=== PATIENT | female | born 1935 | race Caucasian/White ===

== ENCOUNTER 2017-05-02 06:52 | Day surgery (SDC) | payer OTHER ==
[2017-05-02] MEDS ORDERED: D5 LR 1000 ML 1,000 ML IV ONE (07:34)
[2017-05-02] MEDS ORDERED: DIPRIVAN VIAL 20 ML ONE (08:59)
[2017-05-02 11:41] VITALS: BP 130/69
== END 2017-05-02 09:50 | disposition home or self-care (01) ==
LOC: SURG1 06:52
PROVIDERS: ATTEND Internal Medicine Gastroenterology
PROC: 0DJ08ZZ Inspection of Upper Intestinal Tract, Via Natural or Artificial Opening Endoscopic (ICD-10-PCS; principal; 2017-05-02 09:45)
PROC: 0DB68ZX Excision of Stomach, Via Natural or Artificial Opening Endoscopic, Diagnostic (ICD-10-PCS; principal; 2017-05-02 09:45)
DX: K25.9 Gastric ulcer, unspecified as acute or chronic, without hemorrhage or perforation (principal); K21.9 Gastro-esophageal reflux disease without esophagitis; R10.13 Epigastric pain; K29.60 Other gastritis without bleeding; K20.8 Other esophagitis
CPT/HCPCS: 99100; A4217; J3490; J7120

== ENCOUNTER → 2017-05-13 | Outpatient (CLI) | payer OTHER ==
[2017-05-02 11:41] VITALS: BP 130/69
--- NOTE | 2017-05-13 14:50 | MG ---
HISTORY: SCREENING Comparison: May 03, 2016 FINDINGS: Bilateral CC and MLO projections of the right and left breast were obtained. Scattered fibroglandul ar tissue is seen to be present. No significant architectural distortion, mass or clustered microca lcifications can be observed to suggest malignancy. No skin thickening or nipple retraction is appr eciated. No pathological lymphadenopathy can be identified. Benign-appearing calcifications scatte red throughout the right and left breasts are observed. IMPRESSION: NO RADIOGRAPHIC EVIDENCE OF MALIGNANCY. ACR CATEGORY 2 - benign findings. FOLLOW-UP EXAM 1 YEAR. Diagnostic CAD was utilized and reviewed. * 0 (ZERO) - ASSESSMENT INCOMPLETE; ADDITIONAL IMAGING IS NEEDED. * 1/ (ONE) - NEGATIVE. * 2/II (TWO) - BENIGN FINDINGS. * 3/III (THREE) - PROBABLY BENIGN FINDING; SHORT INTERVAL FOLLOW-UP SUGGESTED. * 4/IV (FOUR) - SUSPICIOUS ABNORMALITY; BIOPSY SHOULD BE CONSIDERED. * 5/V - HIGHLY SUSPICIOUS OF MALIGNANCY; BIOPSY SHOULD BE PERFORMED. A NEGATIVE X-RAY REPORT SHOULD NOT DELAY BIOPSY IF A DOMINANT OR CLINICALLY SUSPICIOUS MASS IS PRESENT; 4 TO 8 PERCENT OF CANCERS ARE NOT IDENTIFIED BY X-RAY. A NEG ATIVE REPORT MAY REINFORCE THE CLINICAL IMPRESSION. ADENOSIS AND DENSE BREASTS MAY OBSCURE AN UNDER LYING NEOPLASM. Reported By:
== END | disposition home or self-care (01) ==
LOC: RAD 09:35
PROVIDERS: ATTEND Nurse Practitioner Family
DX: Z12.31 Encounter for screening mammogram for malignant neoplasm of breast (principal)
CPT/HCPCS: 77067

== ENCOUNTER → 2017-08-22 | Outpatient (CLI) | payer OTHER ==
[2017-08-22 08:18] LABS: BASOPHILS % (AUTO) 0.7 % (0.2-1.0); EOSINOPHILS # (AUTO) 0.1 x10^3/uL (0.0-0.2); EOSINOPHILS % (AUTO) 1.6 % (0.9-2.9); HEMOGLOBIN 14.2 g/dL (12.0-16.0); MEAN CORPUSCULAR HEMOGLOBIN 31.4 pg (27.0-34.0); MEAN CORPUSCULAR HGB CONC 33.7 g/dL (33.0-35.0); MEAN CORPUSCULAR VOLUME 93.2 fL (80.0-100.0); MEAN PLATELET VOLUME 8.9 fL (7.4-11.0); MONOCYTES # (AUTO) 0.4 x10^3/uL (0.3-0.8); MONOCYTES % (AUTO) 8.6 % (0.0-13.0); NEUTROPHILS # (AUTO) 3.1 x10^3/uL (2.2-4.8); NEUTROPHILS % (AUTO) 67.1 % (42.0-75.0); PLATELET COUNT 156 X10^3/uL (150.0-450.0); RED BLOOD COUNT 4.51 X10^6/uL (3.5-5.4); RED CELL DISTRIBUTION WIDTH 13.3 % (11.6-16.5); WHITE BLOOD COUNT 4.6 X10^3/uL (3.6-10.0)
[2017-08-22 08:35] LABS: ALANINE AMINOTRANSFERASE 31 Units/L (12-78); ALBUMIN 3.7 g/dL (3.4-5.0); ALKALINE PHOSPHATASE 91 Units/L (46-116); ASPARTATE AMINO TRANSFERASE 24 Units/L (15-37); BLOOD UREA NITROGEN 14 mg/dL (7-18); CALCIUM 9.1 mg/dL (8.5-10.1); CARBON DIOXIDE 29.9 mmol/L (21-32); CHLORIDE 108 mmol/L (98-107); CHOL/HDL RATIO 3.8 (0.0-5.0); CHOLESTEROL 203 mg/dL (0-200); FREE T4 (FREE THYROXINE) 0.96 ng/dL (0.76-1.46); HDL CHOLESTEROL 54 mg/dL (40-60); SODIUM 143 mmol/L (136-145); TRIGLYCERIDES 211 mg/dL (0-150); TSH (3RD GENERATION) 2.943 uIU/mL (0.358-3.74); eGFR BLACK RACES > 60 (>60); eGFR NON BLACK RACES > 60 (>60)
== END ==
LOC: LAB 07:52
PROVIDERS: ATTEND Nurse Practitioner Family
DX: Z79.899 Other long term (current) drug therapy (principal)
CPT/HCPCS: 36415; 80053; 80061; 84439; 84443; 85025

== ENCOUNTER 2017-10-18 23:24 | Inpatient (IN) | payer OTHER ==
--- NOTE | 2017-10-19 00:04 | DR.GENAD ---
HPI - PCP Primary Care Physician: EMILY KENYON - Complaint/Symptoms Chief Complaint Doctors Comments: patient presents with complaint of vomiting tonight, body ache and headache. She denies fever or diarrhea. 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 Past Surgical History: Yes Surgical History: Hysterectomy, Tonsillectomy - Family History History of Family Medical Conditions: No Family Medical History: Diabetes Mellitus, Coronary Artery Disease, Hypertension - Social History Does patient currently use any type of tobacco product: No Have you used tobacco products in the last 12 months: No Type of Tobacco Use: None Does any household member use tobacco: No Alcohol Use: None Do you use any recreational Drugs:: No Lives With: Spouse Lives Where: Home - infectious screening In the last 2 months have you had wt loss of >10#?: NO Have you had fever, night sweats or hemotysis?: No Have you traveled outside the country in the last 6 months?: No Isolation: Standard ROS - Review of Systems Eyes: No Symptoms Reported ENTM: No Symptoms Reported Respiratoy: No Symptoms Reported Cardiovascular: No Symptoms Reported Gastrointestinal/Abdominal: No Symptoms Reported Genitourinary: No Symptoms Reported Neurological: No Symptoms Reported Musculoskeletal: No Symptoms Reported Integumentary: See HPI, Change in Color, Dryness Hematologic/Lymphatic: No Symptoms Reported Endocrine: No Symptoms Reported Psychiatric: No Symptoms Reported All Other Systems: Reviewed and Negative PE - Vital Signs Vitals: Pulse Rate 22 Respiratory Rate 74 Blood Pressure [Right Arm] 145/71 Blood Pressure 181/82 O2 Sat by Pulse Oximetry 99 - General Limitations: No Limitations General Appearance: Alert, In No Apparent Distress - Head Head Exam: Normal Inspection, Atraumatic - Eyes Eye exam: Normal Appearance, PERRL, EOMI - ENT ENT Exam: Mucous Membranes Dry External Ear Exam: Normal External Inspection TM/Canal Exam: Bilateral Normal Nose Exam: Normal Nose Exam, Sinus Tenderness Mouth Exam: Other (dry) Throat Exam: Normal Inspection - Neck Neck Exam: Normal Inspection, Full ROM - Chest Chest Inspection: Normal Inspection - Respiratory Respiratory Exam: Normal Lung Sounds Bilat Respiratory Exam: Bilateral Clear to Auscultation - Cardiovascular Cardiovascular Exam: Regular Rate, Normal Rhythm - Abdominal Exam Abdominal Exam: Normal Inspection Abdominal Tenderness: negative: RUQ, RLQ, LUQ, LLQ, Epigastrium, Suprapubic, Diffuse, Mild, Moderate, Severe, Other - Extremities Extremities Exam: Normal Inspection, Full ROM. negative: Normal Capillary Refill (prolong) - Back Back Exam: Normal Inspection, Full ROM - Neurologic Neurological Exam: Alert, Oriented X3, CN II-XII Intact - Psychiatric Psychiatric Exam: Normal Affect - Skin Skin Exam: Warm, Dry, Intact, Other (decreased turgor) Course - Consultation Called: 01:25 (Dr Dewitt agreed to admit for further treatment) ROR - Labs Reviewed Result Diagrams: 10/18/17 23:25 10/18/17 23:25 Laboratory: WBC 7.7 X10^3/uL (3.6-10.0) 10/18/17 23:25 RBC 4.32 X10^6/uL (3.5-5.4) 10/18/17 23:25 Hgb 13.7 g/dL (12.0-16.0) 10/18/17 23:25 Hct 40.2 % (36.0-47.0) 10/18/17 23:25 MCV 93.1 fL (80.0-100.0) 10/18/17 23:25 MCH 31.7 pg (27.0-34.0) 10/18/17 23:25 MCHC 34.0 g/dL (33.0-35.0) 10/18/17 23:25 RDW 13.2 % (11.6-16.5) 10/18/17 23:25 Plt Count 144 X10^3/uL (150.0-450.0) L 10/18/17 23:25 MPV 8.6 fL (7.4-11.0) 10/18/17 23:25 Neut % 58.8 % (42.0-75.0) 10/18/17 23:25 Lymph % 31.8 % (21.0-51.0) 10/18/17 23:25 [place] % 7.8 % (0.0-13.0) 10/18/17 23:25 Eos % 1.0 % (0.9-2.9) 10/18/17 23:25 Baso % 0.6 % (0.2-1.0) 10/18/17 23:25 Neut # 4.6 x10^3/uL (2.2-4.8) 10/18/17 23:25 Lymph # 2.5 X10^3/uL (1.3-2.9) 10/18/17 23:25 [place] # 0.6 x10^3/uL (0.3-0.8) 10/18/17 23:25 Eos # 0.1 x10^3/uL (0.0-0.2) 10/18/17 23:25 Baso # 0.0 X10^3/uL (0.0-0.1) 10/18/17 23:25 Absolute Nucleated RBC 0.1 /100WBC 10/18/17 23:25 Sodium 142 mmol/L (136-145) 10/18/17 23:25 Corrected Sodium 143 mmol/L (136-145) 10/18/17 23:25 Potassium 3.0 mmol/L (3.5-5.1) L* 10/18/17 23:25 Chloride 105 mmol/L (98-107) 10/18/17 23:25 Carbon Dioxide 22.6 mmol/L (21-32) 10/18/17 23:25 BUN 12 mg/dL (7-18) 10/18/17 23:25 Creatinine 0.91 mg/dL (0.55-1.02) 10/18/17 23:25 Est GFR (MDRD) Af Amer > 60 (>60) 10/18/17 23:25 Est GFR (MDRD) Non-Af > 60 (>60) 10/18/17 23:25 Glucose 140 mg/dL (65-99) H 10/18/17 23:25 Calcium 9.4 mg/dL (8.5-10.1) 10/18/17 23:25 Corrected Calcium TNP 10/18/17 23:25 Total Bilirubin 0.40 mg/dL (0.2-1.0) 10/18/17 23:25 AST 20 Units/L (15-37) 10/18/17 23:25 ALT 21 Units/L (12-78) 10/18/17 23:25 Alkaline Phosphatase 96 Units/L (46-116) 10/18/17 23:25 Total Protein 7.3 g/dL (6.4-8.2) 10/18/17 23:25 Albumin 3.8 g/dL (3.4-5.0) 10/18/17 23:25 Globulin 3.5 g/dL (2.5-4.5) 10/18/17 23:25 Albumin/Globulin Ratio 1.1 Ratio (1.1-2.1) 10/18/17 23:25 - XRAY XRAY Interpreted by: Radiologist (Chest:Patchy left basilar opacities, either reflecting atelectasis or developing infiltrate.) - Diagnosis Discharge Problem: Dehydration, Hypokalemia, Left basilar pneumonia - Discharge Plan Condition: Stable - Follow ups/Referrals Follow ups/Referrals: JUAN CARLOS RILEY [Primary Care Provider] - 3 days - Instructions
[2017-10-19 00:20] LABS: BASOPHILS % (AUTO) 0.6 % (0.2-1.0); EOSINOPHILS # (AUTO) 0.1 x10^3/uL (0.0-0.2); HEMATOCRIT 40.2 % (36.0-47.0); HEMOGLOBIN 13.7 g/dL (12.0-16.0); LYMPHOCYTES # (AUTO) 2.5 X10^3/uL (1.3-2.9); LYMPHOCYTES % (AUTO) 31.8 % (21.0-51.0); MEAN CORPUSCULAR HEMOGLOBIN 31.7 pg (27.0-34.0); MEAN CORPUSCULAR VOLUME 93.1 fL (80.0-100.0); MEAN PLATELET VOLUME 8.6 fL (7.4-11.0); MONOCYTES # (AUTO) 0.6 x10^3/uL (0.3-0.8); MONOCYTES % (AUTO) 7.8 % (0.0-13.0); NEUTROPHILS # (AUTO) 4.6 x10^3/uL (2.2-4.8); NEUTROPHILS % (AUTO) 58.8 % (42.0-75.0); PLATELET COUNT 144 X10^3/uL (150.0-450.0); RED BLOOD COUNT 4.32 X10^6/uL (3.5-5.4); RED CELL DISTRIBUTION WIDTH 13.2 % (11.6-16.5); WHITE BLOOD COUNT 7.7 X10^3/uL (3.6-10.0)
[2017-10-19] MEDS ORDERED: ZOFRAN INJ 4 MG VIAL IVP ONE (00:21)
[2017-10-19 00:24] LABS: BLOOD UREA NITROGEN 12 mg/dL (7-18); CALCIUM 9.4 mg/dL (8.5-10.1); CARBON DIOXIDE 22.6 mmol/L (21-32); CHLORIDE 105 mmol/L (98-107); COR NA(FOR HYPERGLY) 143 mmol/L (136-145); CREATININE 0.91 mg/dL (0.55-1.02); SODIUM 142 mmol/L (136-145); eGFR BLACK RACES > 60 (>60); eGFR NON BLACK RACES > 60 (>60)
[2017-10-19 00:29] LABS: ALANINE AMINOTRANSFERASE 21 Units/L (12-78); ALBUMIN 3.8 g/dL (3.4-5.0); ALKALINE PHOSPHATASE 96 Units/L (46-116); ASPARTATE AMINO TRANSFERASE 20 Units/L (15-37); TOTAL PROTEIN 7.3 g/dL (6.4-8.2)
[2017-10-19] MEDS ORDERED: TORADOL 30 MG VIAL IVP ONE (00:31)
[2017-10-19] MEDS: NS 1000 ML 1,000 ML IV SCH ×2 (00:32→10:54)
--- NOTE | 2017-10-19 01:25 | RAD ---
Chest, one-view Indication: Headache, neck ache, vomiting Comparison: 08/30/2016 Findings: The heart size is normal. There are patchy left basilar opacities. The remainder of the cas gs are clear. No significant pleural effusion or pneumothorax is identified. No acute osseous abnorma lity is seen. Impression: Patchy left basilar opacities, either reflecting atelectasis or developing infiltrate. Cl inical correlation and follow-up to complete resolution recommended. Reported By:
[2017-10-19] MEDS ORDERED: SALINE 3% 15 ML NEB TX NEB ONE (01:34)
[2017-10-19] MEDS ORDERED: NS 1000 ML 1,000 ML with POTASSIUM CHLORIDE INJ 20 MEQ VIAL 20 MEQ IV ONE ×2 (01:44)
[2017-10-19] MEDS ORDERED: K-LYTE EFFERVESCENT PO STA (01:50)
[2017-10-19] MEDS ORDERED: ROCEPHIN VIAL 1 GM 1 GM in NS 50 ML IV + SPIKE MINIBAG* 50 ML IV SCH ×2 (01:55→09:00)
[2017-10-19] MEDS ORDERED: TYLENOL 325 MG TAB PO PRN (03:27)
[2017-10-19 04:32] LABS: BILIRUBIN,URINE NEGATIVE (NEGATIVE); BLOOD/HEMOGLOBIN,URINE NEGATIVE (NEGATIVE); GLUCOSE, URINE NEGATIVE (NEGATIVE); KETONES,URINE NEGATIVE (NEGATIVE); LEUKOCYTE ESTERASE ,URINE NEGATIVE (NEGATIVE); NITRITES,URINE NEGATIVE (NEGATIVE); PROTEIN,URINE NEGATIVE (NEGATIVE); UROBILINOGEN,URINE NORMAL (NORMAL)
[2017-10-19 04:58] LABS: APPEARANCE,URINE CLEAR (CLEAR); BACTERIA,URINE NEGATIVE /HPF (NEGATIVE); COLOR,URINE YELLOW (YELLOW); RBC,URINE 0-3 /HPF (NEGATIVE); SQUAMOUS EPITHELIAL CELL,UR RARE /HPF (NEGATIVE)
[2017-10-19] MEDS: DUONEB 0.5 MG/3 MG NEB SCH ×2 (04:59→08:49)
[2017-10-19 05:38] VITALS: BMI 27.5
--- NOTE | 2017-10-19 08:57 | CT ---
CT HEAD WITHOUT CONTRAST CLINICAL HISTORY: 82-year-old female status post fall with altered mentation. COMPARISON: CT head 12/21/2016. TECHNIQUE: Multiple, non-contrasted axial CT images were obtained from the skull base to the cranial vertex. Coronal and sagittal reformats were performed. FINDINGS: Large volume right cerebellar hemispheric parenchymal hemorrhage measuring approximately 1.7 x 3.5 x 1.5 cm (AP, transverse and craniocaudad). There is a mixed subdural/epidural component along the conv exity of the posterior fossa on the right that extends into the epidural space at the level of the cr aniocervical junction and along the tentorial leaflet. There are no abnormal intra- or extra-axial fluid collections, midline shift, or mass effect. Brito-wh ite differentiation is normal. Global cortical involutional changes are present that are advanced for the patient's stated age. The ventricular system is enlarged but commensurate with the degree of sul liz prominence. Periventricular and supraventricular white matter hypodensity is present that is nons pecific in appearance, but most likely to represent microvascular ischemic changes. Atherosclerotic v ascular calcification is present within the carotid siphons and distal vertebral arteries. Large right frontal scalp contusion/hematoma. The imaged paranasal sinuses, mastoid air cells, and tympanic spaces are clear. IMPRESSION: 1. Large volume right cerebellar hemispheric parenchymal hemorrhage with a mixed subdural/epidural co mponent extending to the craniocervical junction and along the tentorial leaflet. This may be a contr ecoup injury given large right frontal scalp contusion/hematoma but is most likely related to patient 's known history of hypertension and diabetes. 2. Large right frontal scalp contusion/hematoma. 3. Severe microvascular white matter ischemic changes, with associated volume loss. Findings were communicated via telephone to the charge nurse, Janine Engle, by Dr. Romero, radiology o n 10/19/2017 at 8:55 a.m.. Reported By:
[2017-10-19] MEDS ORDERED: VIBRAMYCIN 100 MG in NS 100 ML IV + SPIKE MINIBAG* 100 ML IV SCH (09:00)
[2017-10-19] MEDS ORDERED: ROBITUSSIN DM PO SCH (09:00)
[2017-10-19] MEDS ORDERED: PATIENT'S HOME MEDICATION (Cyclosporine [Restasis] 1 DROP) EACHEYE SCH (10:00)
[2017-10-19] MEDS ORDERED: BENAZEPRIL HCL PO SCH (10:00)
[2017-10-19] MEDS ORDERED: PROPYLENE GLYCOL EACHEYE SCH (10:00)
[2017-10-19] MEDS ORDERED: PATIENT'S HOME MEDICATION (Dexlansoprazole [Dexilant] 60 MG) PO SCH (10:00)
[2017-10-19] MEDS ORDERED: VIBRAMYCIN 100 MG in NS 100 ML IV 100 ML IV SCH (10:00)
[2017-10-19] MEDS ORDERED: COSOPT OPTH LEFTEYE SCH (10:00)
[2017-10-19] MEDS ORDERED: POLYETHYLENE GLYCOL 400 EACHEYE SCH (10:00)
[2017-10-19] MEDS ORDERED: [UNRECOGNIZED DRUG - OTHER] EACHEYE SCH (10:00)
[2017-10-19] MEDS ORDERED: FOLIC ACID 800 MCG PO SCH (10:00)
[2017-10-19] MEDS ORDERED: LOPRESSOR INJ 5 MG AMP IVP PRN (10:36)
[2017-10-19] MEDS ORDERED: VASOTEC INJ 1.25 MG VIAL IVP PRN (10:39)
[2017-10-19] MEDS ORDERED: LOTENSIN TAB 10 MG PO SCH (11:00)
[2017-10-19] MEDS ORDERED: NS + KCL 20 MEQ/L 1,000 ML IV SCH (11:00)
[2017-10-19] MEDS ORDERED: PROTONIX TAB 40 MG PO SCH (11:00)
[2017-10-19] MEDS ORDERED: FOLIC ACID TAB 1 MG PO SCH (11:00)
[2017-10-19 11:04] LABS: BILIRUBIN,URINE NEGATIVE (NEGATIVE); BLOOD/HEMOGLOBIN,URINE 1+ (NEGATIVE); GLUCOSE, URINE NEGATIVE (NEGATIVE); KETONES,URINE 1+ (NEGATIVE); LEUKOCYTE ESTERASE ,URINE NEGATIVE (NEGATIVE); NITRITES,URINE NEGATIVE (NEGATIVE); PROTEIN,URINE 1+ (NEGATIVE); UROBILINOGEN,URINE NORMAL (NORMAL)
[2017-10-19 11:12] LABS: APPEARANCE,URINE HAZY (CLEAR); BACTERIA,URINE TRACE /HPF (NEGATIVE); COLOR,URINE YELLOW (YELLOW); RBC,URINE 0-2 /HPF (NEGATIVE); SQUAMOUS EPITHELIAL CELL,UR NEGATIVE /HPF (NEGATIVE)
[2017-10-19 11:16] VITALS: BP 147/73
[2017-10-19] MEDS ORDERED: NEBIVOLOL HCL PO SCH (21:00)
[2017-10-19] MEDS ORDERED: ROCEPHIN VIAL 1 GM 1 GM in NS 50 ML IV 50 ML IV SCH (21:00)
== END 2017-10-19 10:55 | disposition short-term general hospital (02) | DRG 102 ==
LOC: ER 23:24 → MED/SURG 10-19 01:36
PROVIDERS: ADMIT Obstetrics & Gynecology Obstetrics; ATTEND Internal Medicine
DX: R51 Headache (principal); R11.2 Nausea with vomiting, unspecified; E87.6 Hypokalemia; M54.2 Cervicalgia; J18.8 Other pneumonia, unspecified organism; E86.0 Dehydration; I62.9 Nontraumatic intracranial hemorrhage, unspecified; W17.89XA Other fall from one level to another, initial encounter; Y92.230 Patient room in hospital as the place of occurrence of the external cause; S00.81XA Abrasion of other part of head, initial encounter; S61.412A Laceration without foreign body of left hand, initial encounter; S61.411A Laceration without foreign body of right hand, initial encounter
CPT/HCPCS: 36415; 70450; 71010; 80053; 81001; 84132; 85025; 85610; 85730; 87040; 94640; 94760; 96365; 96367; 96374; 96375; 99282; 99284; A4222; J0696; J3480; J3490; J7620